=== PATIENT | female | born 1940 | race Caucasian/White ===

== ENCOUNTER 2016-08-28 04:29 | Inpatient (IN) | payer MEDICAID, MEDICARE ==
[2016-08-28] VITALS (7 sets, daily range): BP systolic 137–177; BP diastolic 77–93
[~2016-08-28] VITALS: Ht 154.9 cm; Wt 64.4 kg
--- NOTE | 2016-08-28 03:45 | NUR ---
MS RN NOTES: RECEIVED REPORT FROM MERCEDES REECE FROM [facility]. PT HAD UNWITNESSED FALL AT HOME. WAS ALSO INFORMED THAT PT IS DIALYSIS PT AND IS SCHEDULED TUES, THURS, AND SAT.
--- NOTE | 2016-08-28 04:40 | NUR ---
MS RN OPENING NOTES: RECEIVED PT FROM [address] FISH FOR ORDERS. AWAITING FOR PHONE CALL BACK. PT HAS IV ON R AC AND IS PATENT AND INTACT. PT ALSO HAS GERARD CATH IN PLACE AND IS ATTACHED TO DRAINAGE BAG. PT HAS RAO SHUNT USED FOR DIALYSIS. WILL CONTINUE TO MONITOR PT.
[2016-08-28] MEDS ORDERED: MORPHINE SULFATE INJ 4 MG/ML DISP.SYRIN ONE (05:27)
[2016-08-28] MEDS ORDERED: IV NS 0.9% 1,000 ML BAG IV PRN (05:30)
[2016-08-28] MEDS ORDERED: MORPHINE SULFATE INJ 2 MG/ML DISP.SYRIN IV PRN (05:30)
[2016-08-28] MEDS: MORPHINE SULFATE INJ 4 MG/ML DISP.SYRIN IV PRN (05:44)
--- NOTE | 2016-08-28 05:44 | NUR ---
MS RN NOTES: CHARGE NURSED PULLED OUT MORPHINE BUT INFORMED ME TO STOP ORDER AND CHANGE ORDER TO CHANGE ORDER TO MORPHINE 2MG SINCE IT MAY HAVE AN ISSUE SCANNING.
[2016-08-28] MEDS ORDERED: IV SET PRIMARY PUMP SET 1 EA INFUS.SET MC ONE (06:01)
[2016-08-28] MEDS ORDERED: IV NS 0.9% 1,000 ML ONE (06:02)
[2016-08-28] MEDS ORDERED: ONDANSETRON HCL/PF 4 MG/2 ML VIAL ONE (06:28)
[2016-08-28 06:30] LABS: BASOPHILS % (AUTO) 0.4 % (0.0-2.0); EOSINOPHILS # (AUTO) 0.1 /CMM (0.0-0.7); EOSINOPHILS % (AUTO) 2.1 % (0.0-6.0); HEMATOCRIT 39 % (33-45); HEMOGLOBIN 12.5 g/dL (11.5-14.8); LYMPHOCYTES # (AUTO) 1.1 /CMM (0.8-4.8); LYMPHOCYTES % (AUTO) 18.5 % (20.0-44.0); MEAN CORPUSCULAR HEMOGLOBIN 27 PG (26.0-33.0); MEAN CORPUSCULAR HGB CONC 33 g/dl (31.0-36.0); MEAN CORPUSCULAR VOLUME 84 fL (82-100); MONOCYTES # (AUTO) 0.5 /CMM (0.1-1.30); NEUTROPHILS # (AUTO) 4.3 /CMM (1.8-8.9); PLATELET COUNT (AUTO) 197 /CMM (150-450); RDW COEFFICIENT OF VARIATION 14.2 (11.5-15.0); WHITE BLOOD COUNT (AUTO) 6.1 K/uL (4.3-11.0)
[2016-08-28] MEDS: ONDANSETRON HCL/PF 4 MG/2 ML VIAL IV PRN ×2 (06:32→13:15)
[2016-08-28 06:47] LABS: ALANINE AMINOTRANSFERASE 17 U/L (12-78); ALBUMIN 3.8 g/dL (3.4-5.0); ALKALINE PHOSPHATASE 66 U/L (46-116); ASPARTATE AMINOTRANSFERASE 22 U/L (15-37); BILIRUBIN,TOTAL 1.1 mg/dL (0.2-1.0); CALCIUM, SERUM 9.8 mg/dL (8.5-10.1); CARBON DIOXIDE 36 mmol/L (21-32); CHLORIDE 94 mmol/L (98-107); CREATININE 7.1 mg/dL (0.6-1.3); GLUCOSE 134 mg/dL (74-106); MAGNESIUM 2.5 mg/dL (1.8-2.4); PHOSPHORUS 4.5 mg/dL (2.5-4.9); POTASSIUM 4.5 mmol/L (3.5-5.1); SODIUM SERUM 137 mmol/L (136-145); TOTAL PROTEIN, SERUM 8.2 g/dL (6.4-8.2); UREA NITROGEN, BLOOD 16 mg/dL (7-18)
[2016-08-28 07:07] LABS: PROTHROMBIN TIME 10.7 SECS (9.5-12.7)
--- NOTE | 2016-08-28 07:27 | NUR ---
RN OPENING NOTES PT. IS IN BED AWAKE. A&OX2-3. PT. IS NIGERIAN SPEAKING. PT. IS BREATHING UNLABORED ON ROOM AIR. NO S/S OF ACUTE DISTRESS. IV FLUIDS RUNNING AT 75 ML/ HR ON RIGHT ANTECUBITAL IV SITE. GERARD CATHETER HAS 150 ML OF CLEAR AND YELLOW URINE. BED IS IN LOW POSITION, 2 SIDE RAILS UP, AND CALL LIGHT IS WITHIN REACH. PT. HAS CONSENT FORM PREPARED FOR AN OPEN REDUCTION INTERNAL FIXATION OF RIGHT HIP FOR SURGERY, WILL FOLLOW UP. WILL CONTINUE TO ASSESS AND MONITOR.
--- NOTE | 2016-08-28 07:27 | NUR ---
MS RN CLOSING NOTES: ORDERED RECEIVED FROM DR. FISH AND WERE INPUTTED. NO SIGNS OR SYMPTOMS OF DISTRESS NOTED AT THIS TIME. PT RECEIVED ZOFRAN AND MORPHINE. PT HAS IV R AC AND IS BEING INFUSED WITH NS AT 75ML/HR. ALL NEEDS WERE ATTENDED AND ANTICIPATED FOR. BED KEPT IN LOCKED, LOWEST POSITION, AND SIDE RAILS X 2 UP. ENDORSED TO AM NURSE FOR JOHN.
--- NOTE | 2016-08-28 08:26 | NUR ---
RN NOTES PT. SIGNED SURGICAL PACKET CONSENT FORMS SIGNED. TYPE AND SCREEN WAS ORDERED.
[2016-08-28] MEDS ORDERED: IV NS 0.9% 1,000 ML IV PRN (09:00)
[2016-08-28 11:00] LABS: CHOLESTEROL 216 mg/dL (<200); HDL CHOLESTEROL 36 mg/dL (40-60); LDL 146 mg/dL (0-99); TRIGLYCERIDES 153 mg/dL (30-150)
[2016-08-28] MEDS ORDERED: FOLI1CAP PO (11:22)
[2016-08-28] MEDS ORDERED: ONDA4TAB5 PO (11:28)
[2016-08-28] MEDS ORDERED: NIFE30TA2 PO (11:32)
--- NOTE | 2016-08-28 11:46 | NUR ---
RN NOTES PT.'S FAMILY MEMBER JESS SAID THAT PT. RECEIVES HEMODIALYSIS TUESDAY, TUESDAY, AND TUESDAY. ALSO PT.'S HOME MEDICATIONS WERE VERIFIED. JESS LEFT TELEPHONE NUMBER .
--- NOTE | 2016-08-28 13:11 | NUR ---
RN NOTES PT. HAD X RAY PERFORMED FOR RIGHT HIP AND FEMUR, ASSISTED RADIOLOGIST WITH X-RAYS.
--- NOTE | 2016-08-28 13:12 | NUR ---
RN NOTES APPLIED DVT PUMPS TO BOTH LEGS.
[2016-08-28] MEDS: hydrALAZINE HCL 10 MG TABLET PO PRN (15:48)
--- NOTE | 2016-08-28 15:52 | NUR ---
RN NOTES PT.'S BLOOD PRESSURE WAS 169/86, PULSE 98. HYDROLAZINE HYDROCHLORIDE 10 MG WAS GIVEN. NO S/S OF ACUTE DISTRESS. PT. DENIES CHEST PAIN, AND NO SOB.
--- NOTE | 2016-08-28 16:48 | NUR ---
RN NOTES REASSESSED BP, 150/75, PULSE 95 BPM.
--- NOTE | 2016-08-28 17:03 | NUR ---
RN SABRINA SMART NP, WAS NOTIFIED OF PT.'S SBP 169/86, AND BLOOD PRESSURE MEDICATION WAS GIVEN. NO NEW ORDERS GIVEN.
--- NOTE | 2016-08-28 17:05 | NUR ---
RN NOTE PT.'S OXYGEN SATURATION IS READING 85% TO 90%. LIZA SMART AQUATICS ASSISTANT DEPARTMENT HEAD, WAS NOTIFIED AND NEW ORDERS WERE GIVEN TO START PT. ON OXYGEN AT 2L/MIN NASAL CANNULA.
--- NOTE | 2016-08-28 17:25 | NUR ---
RN NOTES REASSESSED OXYGEN SATURATION, IS NOW 99% WITH OXYGEN 2L/MIN.
--- NOTE | 2016-08-28 19:00 | NUR ---
MS RN INITIAL NOTE PT RECEIVED IN BED, NO S/S OF RESPIRATORY DISTRESS OR SOB. IV SITE INTACT WITH NO S/S OF INFILTRATION NOTED. SAFE ENVIRONMENT PROVIDED FREE OF CLUTTERS .BED IN LOCKED, LOW POSITION. CALL LIGHT WITHIN EASY REACH. WILL CONTINUE TO MONITOR.
--- NOTE | 2016-08-28 19:30 | NUR ---
RN CLOSING NOTES PT. IS IN BED A&OX3. LUXEMBOURGISH SPEAKING ONLY. PT. IS BREATHING ON OXYGEN 2 L/MIN WITH NASAL CANNULA. PT. HAS PATENT RIGHT IV ANTECUBITAL ACCESS. GERARD CATHETER WITH CLEAR AND YELLOW URINE 240 ML OUTPUT. BED IS IN LOW POSITION 2 SIDE RAILS UP, AND CALL LIGHT WITHIN REACH. DR. DIAZ RECEIVED X RAY IMAGES, AND CONSENT FORMS SIGNED. LEFT MESSAGE OVER THE PHONE FOR PT. FAMILY TO NOTIFY ABOUT SURGERY TOMORROW MORNING, PROVIDED [facility] [address] [place] CALL BACK NUMBER. WILL ENDORSE TO TIE SAWYER NURSE.
[2016-08-28] MEDS: NIFEdipine XL (30MG) 30 MG TAB PO SCH (21:28)
[2016-08-28] MEDS: VITAMIN B COMP W-C 1 TAB TABLET PO SCH (21:28)
--- NOTE | 2016-08-29 06:32 | NUR ---
MS RN CLOSING NOTES PATIENT COMFORTABLY IN BED ASLEEP AND EASILY AWAKEN, HEAD OF BED ELEVATED FOR BETTER LUNG EXPANSION AND GOOD CIRCULATION. ALERT AND VERBALLY X 3 NO S/S OF ACUTE DISTRESS. TOLERATING ROOM AIR NOW 02 SAT 95% R.A RESPONDS APPROPRIATELY TO VERBAL STIMULI, RESPIRATIONS EVEN UNLABORED BREATH SOUNDS. GOOD SKIN CARE PROVIDED. PATIENT IN STABLE CONDITION WITH NO SOB NO S/S OF DISTRESS SAFE HAZARD FREE ENVIRONMENT. NEEDS ATTENDED AND ANTICIPATED, NURSING CARE RENDERED, KEPT CLEAN AND DRY AND COMFORTABLE. ALL DUE MEDS WAS GIVEN. CALL LIGHT IN REACH, BED LOWERED AND LOCKED, SR X2 FOR SAFETY AND WILL ENDORSE CONTINUE PLAN OF CARE. MAINTAINS NPO AT MIDNIGHT FOR SURGERY FOR TODAY
[2016-08-29 06:36] LABS: BASOPHILS % (AUTO) 0.5 % (0.0-2.0); EOSINOPHILS # (AUTO) 0.1 /CMM (0.0-0.7); EOSINOPHILS % (AUTO) 1.7 % (0.0-6.0); HEMATOCRIT 41 % (33-45); HEMOGLOBIN 13.2 g/dL (11.5-14.8); LYMPHOCYTES # (AUTO) 0.8 /CMM (0.8-4.8); LYMPHOCYTES % (AUTO) 14.9 % (20.0-44.0); MEAN CORPUSCULAR HEMOGLOBIN 28 PG (26.0-33.0); MEAN CORPUSCULAR HGB CONC 33 g/dl (31.0-36.0); MEAN CORPUSCULAR VOLUME 84 fL (82-100); MONOCYTES # (AUTO) 0.5 /CMM (0.1-1.30); MONOCYTES % (AUTO) 8.8 % (2.0-12.0); NEUTROPHILS # (AUTO) 3.9 /CMM (1.8-8.9); NEUTROPHILS % (AUTO) 74.1 % (43.0-81.0); PLATELET COUNT (AUTO) 196 /CMM (150-450); WHITE BLOOD COUNT (AUTO) 5.3 K/uL (4.3-11.0)
[2016-08-29 06:50] LABS: CALCIUM, SERUM 9.7 mg/dL (8.5-10.1); CARBON DIOXIDE 35 mmol/L (21-32); CHLORIDE 93 mmol/L (98-107); GLUCOSE 119 mg/dL (74-106); MAGNESIUM 2.6 mg/dL (1.8-2.4); PHOSPHORUS 6.1 mg/dL (2.5-4.9); POTASSIUM 5.3 mmol/L (3.5-5.1); SODIUM SERUM 136 mmol/L (136-145); UREA NITROGEN, BLOOD 27 mg/dL (7-18)
[2016-08-29] MEDS ORDERED: BUPIVACAINE 0.5 % PF 150 MG/30 ML VIAL ONE (06:52)
[2016-08-29] MEDS ORDERED: BACITRACIN 50000 UNITS/VIAL ONE (06:52)
[2016-08-29 07:14] LABS: CREATININE 9.1 mg/dL (0.6-1.3)
--- NOTE | 2016-08-29 07:15 | NUR ---
MS RN NOTES RECEIVED PATIENT IN BED, AWAKE, A/O X3. PATIENT IS ON NPO, FOR SURGERY TODAY ORIF RIGHT HIP. NO C/O PAIN AT THIS TIME. BREATHING EVEN AND NON LABORED, NO SOB. CALL LIGHT WITHIN REACH. WILL CONT TO MONITOR.
--- NOTE | 2016-08-29 07:30 | NUR ---
FOR CARDIO CLEARANCE PRIOR SURGERY, NOTIFIED DR. GUTIÉRREZ, AWAITING MD TO CALL BACK.
[2016-08-29 08:00] VITALS: BP 149/76
--- NOTE | 2016-08-29 08:49 | NUR ---
PER STIVEN-OR NURSE, SURGERY CALLED TODAY. WILL FOLLOW UP FOR CARDIO CLEARANCE.
--- NOTE | 2016-08-29 09:16 | NUR ---
SPOKE TO DR. TOURE, PER MD HE WILL COME TO SEE THE PATIENT. CALLED OR, SPOKE TO [facility] NURSE, DR. DIAZ CONFIRMED CANCELLED SURGERY TODAY 08/29/16. PATIENT INFORMED, WITH SENIOR [employer] NET DEVELOPER AND WILL PLACE DIET BACK ON. INFORMED VAT PACKER-LIZA, CHARGE NURSE MADE AWARE.
--- NOTE | 2016-08-29 10:13 | NUR ---
PATIENT IS SEEN BY DR. TOURE, PER MD IF SURGERY IS TOMORROW, WOULD RECOMMEND HD IN AM PRIOR SURGERY. WILL ENDORSE TO NEXT SHIFT RN. CHARGE NURSE INFORMED.
--- NOTE | 2016-08-29 11:08 | NUR ---
ELEVATED POTASSIUM LEVEL 5.3 PER PATIENT HER LAST DIALYSIS TREATMENT WAS Tuesday08/27/[address] ROCA WITH NO NEW ORDERS AT THIS TIME.
[2016-08-29 16:00] VITALS: BP 150/78
[2016-08-29] MEDS: HYDROCODONE/APAP 5/325MG 1 EACH TABLET PO PRN (16:46)
--- NOTE | 2016-08-29 18:20 | NUR ---
MS RN CLOSING NOTES PATIENT IN BED, AWAKE. NOT IN DISTRESS. LIMITED MOVEMENT IN RLE DUE TO FRACTURE, MEDICATED WITH NORCO PO PRN AND MADE COMFORTABLE IN BED. CALL LIGHT WITHIN REACH. HD IN AM, AWAITING FOR SURGERY SCHEDULE BY DR. DIAZ. WILL ENDORSE TO LEGAL CASHIER RN FOR CONTINUITY OF CARE.
--- NOTE | 2016-08-29 19:30 | NUR ---
RN NOTE; RECEIVED PT IN AWAKE, A, OX3. BREATHING EVENLY. NO SOB. NAD. NO C/O PAIN OR DISCOMFORT. EXPLAINED POSSIBLE SX IN AM TO THE PT W/ UNDERSTANDING. TO F/U W/ SX SCHEDULE. NEEDS ATTENDED. ASSISTED W/ ADLS. CALL LIGHT WITHIN REACH. WILL CONT TO MONITOR .
[2016-08-29 20:11] VITALS: BP 148/77
[2016-08-29 20:56] VITALS: BP 148/77
[2016-08-29] MEDS: VITAMIN B COMP W-C 1 TAB TABLET PO SCH (21:11)
[2016-08-29] MEDS: NIFEdipine XL (30MG) 30 MG TAB PO SCH (21:11)
[2016-08-30] VITALS (9 sets, daily range): BP systolic 125–162; BP diastolic 65–94
--- NOTE | 2016-08-30 06:26 | NUR ---
RN NOTE; PT IN BED SLEEPING, AROUSES EASILY. BREATHING EVENLY. NO SOB. NAD. NO C/O PAIN OR DISCOMFORT. PT NPO AT THIS TIME FOR POSSIBLE SX TODAY. F/C IN PLACE. DRAINING VERY LITTLE AMOUNT OF CLEAR YELLOW URINE. NEEDS ATTENDED. CALL LIGHT WITHIN REACH. WILL CONT TO MONITOR AND WILL ENDORSE TO AM SHIFT FOR JOHN.
--- NOTE | 2016-08-30 08:00 | NUR ---
MS RN RECEIVED ON BED, AWAKE, ALERT, ORIENTED X3,ENGLISH SPEAKING LADY, DENIES PAIN AT THIS TIME. NOT IN ANY FORM OF DISTRESS, RESPIRATIONS EVEN AND UNLABORED,NO SOB NOTED.
--- NOTE | 2016-08-30 08:50 | NUR ---
MS REECE BREAKFAST SERVED,DUE MEDS GIVEN,TOLERATED WELL.
--- NOTE | 2016-08-30 09:00 | NUR ---
MS RN PATIENT KEPT ON NPO AT THIS TIME, DUE FOR SURGERY TODAY, PER [place] TUCKER.
--- NOTE | 2016-08-30 09:40 | NUR ---
MS RN WAS ABLE TO SPOKE W/ DAUGTHER, WILL HAVE SURGERY AFTER DIALYSIS.COLLAR RUNNER CAME TO DIALYZED PATIENT TODAY, BEFORE SURGERY.ALL NEEDS ATTENDED.
[2016-08-30 12:38] LABS: CARBON DIOXIDE 33 mmol/L (21-32); CHLORIDE 96 mmol/L (98-107); CREATININE 4.4 mg/dL (0.6-1.3); GLUCOSE 108 mg/dL (74-106); POTASSIUM 3.6 mmol/L (3.5-5.1); SODIUM SERUM 137 mmol/L (136-145); UREA NITROGEN, BLOOD 16 mg/dL (7-18)
--- NOTE | 2016-08-30 13:05 | NUR ---
MS SUPERVISOR METAL FABRICATING DONE W/ 2 LITERS OUTPUT,TOLERATED WELL.
[2016-08-30] MEDS ORDERED: FENTANYL PF 100MCG/2ML AMPUL ONE (13:06)
[2016-08-30] MEDS ORDERED: MIDAZOLAM HCL 2 MG/2ML VIAL ONE (13:06)
[2016-08-30] MEDS ORDERED: BUPIVACAINE 0.5 % PF 150 MG/30 ML VIAL ONE (13:15)
[2016-08-30] MEDS ORDERED: BACITRACIN 50000 UNITS/VIAL ONE (13:15)
--- NOTE | 2016-08-30 13:15 | NUR ---
MS RN ON BED, PATIENT WENT DOWN FOR SX, SEBAS WAS NOTIFIED W/ BMP RESULTS.
--- NOTE | 2016-08-30 16:10 | NUR ---
MS RN PATIENT CAME BACK FROM SURGERY, AWAKE,ALERT,ORIENTED X3, DENIES ANY PAIN AT THIS TIME, SX SITE COVERED W/ DRESSING, DRY,NO S.S OF BLEEDING, ICEPACK APPLIED TO SITED, WILL MONITOR PATIENT.
--- NOTE | 2016-08-30 17:05 | NUR ---
MS RN MADE ROUNDS, PATIENT DENIES ANY PAIN AT THIS TIME.
--- NOTE | 2016-08-30 19:00 | NUR ---
MS RN ON BED, NO DISTRESS NOTED, PATIENT DENIES PAIN AT THIS TIME. DRESSING INTACT TO SX SITE, NO S/S OF BLEEDING NOTED.
--- NOTE | 2016-08-30 19:34 | NUR ---
RN NOTE; RECEIVED PT IN BED AWAKE AND ALERT AND RESPONSIVE. BREATHING EVENLY. NO SOB. NAD. DENIED ANY PAIN OR DISCOMFORT.DRESSING ON R HIP CDI, F/C IN PLACE. BED LOW LOCKED. CALL LIGHT WITHIN REACH. WILL CONT TO MONITOR.
[2016-08-30] MEDS ORDERED: SECONDARY IV SET 1 EA INFUS.SET MC ONE (21:08)
[2016-08-30] MEDS: VITAMIN B COMP W-C 1 TAB TABLET PO SCH (21:20)
[2016-08-30] MEDS: ANCEF 1 GM/50 ML D5W IV SCH ×2 (21:20)
[2016-08-30] MEDS: NIFEdipine XL (30MG) 30 MG TAB PO SCH (21:20)
[2016-08-30] MEDS ORDERED: IV SET PRIMARY PUMP SET 1 EA INFUS.SET MC ONE (21:39)
--- NOTE | 2016-08-31 02:12 | NUR ---
NEW IV LINE 24G WAS STARTED ON R HAND W/ GOOD BLOOD RETURN. WILL CONT TO MONITOR.
[2016-08-31] MEDS: ANCEF 1 GM/50 ML D5W IV SCH ×4 (05:17→13:00)
--- NOTE | 2016-08-31 06:38 | NUR ---
RN NOTE; PT IN BED AWAKE AND ALERT. BREATHING EVENLY. NO SOB. NAD. NO ACUTE CHANGES OVER THE. NO COMPLICATION TO S/P HIP ORIF NOTED. NO C/O PAIN OR DISCOMFORT. DRESSING CDI. TO BE SEEN BY PT TODAY. NEEDS ATTENDED. ASSISTED W/ ADLS. CALL LIGHT WITHIN REACH. WILL CONT TO MONITOR AND WILL ENDORSE TO AM SHIFT FOR JOHN.
--- NOTE | 2016-08-31 07:30 | NUR ---
RECEIVED PT. IN AM ALERT AND ORIENTED X3,GUYANESE SPEAKING.
[2016-08-31 08:00] VITALS: BP 168/90
[2016-08-31 08:11] LABS: HEMATOCRIT 35 % (33-45); HEMOGLOBIN 11.6 g/dL (11.5-14.8); LYMPHOCYTES # (AUTO) 0.4 /CMM (0.8-4.8); LYMPHOCYTES % (AUTO) 7.3 % (20.0-44.0); MEAN CORPUSCULAR HEMOGLOBIN 28 PG (26.0-33.0); MEAN CORPUSCULAR HGB CONC 33 g/dl (31.0-36.0); MEAN CORPUSCULAR VOLUME 84 fL (82-100); MONOCYTES # (AUTO) 0.3 /CMM (0.1-1.30); MONOCYTES % (AUTO) 6.2 % (2.0-12.0); NEUTROPHILS # (AUTO) 4.5 /CMM (1.8-8.9); NEUTROPHILS % (AUTO) 86.5 % (43.0-81.0); PLATELET COUNT (AUTO) 215 /CMM (150-450); RDW COEFFICIENT OF VARIATION 14.1 (11.5-15.0); RED BLOOD CELL COUNT(AUTO) 4.17 MIL/uL (4.0-5.2); WHITE BLOOD COUNT (AUTO) 5.2 K/uL (4.3-11.0)
[2016-08-31] MEDS: hydrALAZINE HCL 10 MG TABLET PO PRN (08:17)
[2016-08-31 08:30] LABS: CALCIUM, SERUM 9.3 mg/dL (8.5-10.1); CARBON DIOXIDE 29 mmol/L (21-32); CHLORIDE 93 mmol/L (98-107); GLUCOSE 235 mg/dL (74-106); MAGNESIUM 2.5 mg/dL (1.8-2.4); PHOSPHORUS 5.5 mg/dL (2.5-4.9); POTASSIUM 5.4 mmol/L (3.5-5.1); SODIUM SERUM 133 mmol/L (136-145); UREA NITROGEN, BLOOD 36 mg/dL (7-18)
[2016-08-31] MEDS ORDERED: ENOXAPARIN SODIUM 40 MG/0.4 ML DISP.SYRIN SQ SCH (09:00)
--- NOTE | 2016-08-31 09:00 | NUR ---
BP ELEVATED-GIVEN APRESOLINE.
[2016-08-31 09:07] LABS: CREATININE 8.6 mg/dL (0.6-1.3)
[2016-08-31] MEDS: ENOXAPARIN SODIUM 30 MG/0.3 ML DISP.SYRIN SQ SCH (09:24)
--- NOTE | 2016-08-31 09:30 | NUR ---
RECEIVED ABN. CREATININE-ALERTED [facility],CALLED NEPHROLOGY.TO BE DIALYZED AGAIN TODAY.
[2016-08-31] MEDS: MORPHINE SULFATE INJ 4 MG/ML DISP.SYRIN IV PRN (10:20)
--- NOTE | 2016-08-31 11:36 | NUR ---
DR. CUNHA IN TO SEE PT. ORDERS GIVEN.
[2016-08-31 16:00] VITALS: BP 131/80
--- NOTE | 2016-08-31 16:00 | NUR ---
DIALYSIS COMPLETED.MED. X 1 FOR DISCOMFORT FOR PHYSICAL TX.
[2016-08-31] MEDS ORDERED: ENOX30DI SQ (16:37)
[2016-08-31] MEDS ORDERED: HYDR-3326 PO (16:37)
--- NOTE | 2016-08-31 19:30 | NUR ---
MS RN INITIAL NOTE RECEIVED PT AWAKE AND ALERT, PALESTINIAN SPEAKING ORIENTED X3, NO COMPLAINT OF PAIN OR RESPIRATORY DISTRESS NOTED DURING PHYSICAL ASSESSMENT, PT IS CLEAN/DRY AND COMFORTABLE, SAFETY MEASURES WILL BE MAINTAINED AT ALL TIMES, NEEDS WILL BE ANTICIPATED AND ATTENDED TO PROMPTLY.
[2016-08-31 20:00] VITALS: BP 138/88
[2016-08-31] MEDS: VITAMIN B COMP W-C 1 TAB TABLET PO SCH (21:33)
[2016-08-31] MEDS: HYDROCODONE/APAP 5/325MG 1 EACH TABLET PO PRN (21:33)
[2016-08-31] MEDS: NIFEdipine XL (30MG) 30 MG TAB PO SCH (21:33)
--- NOTE | 2016-09-01 06:28 | NUR ---
MS RN CLOSING NOTE PT REMAINED STABLE DURING SENIOR NETWORK SYSTEMS ENGINEER, NO SIGNIFICANT CHANGE IN CONDITION NOTE, WILL ENDORSE TO INCOMING NURSE FOR JOHN.
--- NOTE | 2016-09-01 07:15 | NUR ---
RN INITIAL NOTES: RECEIVED PT AWAKE AND ALERT X3, MALTESE SPEAKING, NOT IN ANY DISTRESS, DENIES ANY PAIN / DISCOMFORT. PROVIDED COMFORT & SAFETY MEASURES. BED KEPT LOW & IN LOCKED POS. CALL LIGHT PLACED W/IN REACH. NEEDS ATTENDED. WILL CONTINUE TO MONITOR.
[2016-09-01 08:00] VITALS: BP 158/84
[2016-09-01] MEDS: ENOXAPARIN SODIUM 30 MG/0.3 ML DISP.SYRIN SQ SCH (08:49)
[2016-09-01] MEDS: HYDROCODONE/APAP 5/325MG 1 EACH TABLET PO PRN ×2 (08:49→14:38)
[2016-09-01 10:00] VITALS: BP 158/84
--- NOTE | 2016-09-01 12:00 | NUR ---
auricular therapist received pt in bed aox4 on 2l nc sat 97% pt is not on lmsw lung sounds diminished incentive spirometer at bedside pt teaching done how to use, abd soft active bowl sounds, pt has r hip dressing s/p surgery pt complaining of pain 10/10 pain med given as ordered, iv access patent fall precautions taken call light w/ in reach will continue to monitor. pt refused turning will check again in 1hr advised pt not turning can cause pressure ulcer and or skin damage, pt still refused, will follow up.
[2016-09-01 16:00] VITALS: BP 151/86
--- NOTE | 2016-09-01 16:18 | NUR ---
olericulture teacher pt in room gave report to [employer] [facility] spoke to ella roca, pt will be discharged vs stable dressing changed r hip no swelling edema noted.
[2016-09-01] MEDS: MORPHINE SULFATE INJ 4 MG/ML DISP.SYRIN IV PRN (16:27)
--- NOTE | 2016-09-01 17:32 | NUR ---
agricultural research technician ambualnce at bedside taking pt to [facility], report given, pt refused me to check her sacrum she stated she is in pain i gave her pain med one hr ago she still refuses to have her sacrum and back checked for any skin breakdown or skin condition. vs stable no distress noted pt moved to out of hospital with ambulance exit care done paperwork given to ambulance, pt unable to sign belongings list or exitcare teaching.
== END 2016-09-01 18:00 | DRG 308 ==
LOC: TELE 04:29 → MED 06:49
PROVIDERS: ADMIT Nurse Practitioner Acute Care; ATTEND Nurse Practitioner Acute Care
PROC: 0QS606Z Reposition Right Upper Femur with Intramedullary Internal Fixation Device, Open Approach (ICD-10-PCS; principal; 2016-08-30 14:05)
PROC: 5A1D60Z (ICD-10-PCS; principal; 2016-08-30 14:05)
DX: S72.141A Displaced intertrochanteric fracture of right femur, initial encounter for closed fracture (principal); N18.6 End stage renal disease; I12.0 Hypertensive chronic kidney disease with stage 5 chronic kidney disease or end stage renal disease; E11.22 Type 2 diabetes mellitus with diabetic chronic kidney disease; E11.65 Type 2 diabetes mellitus with hyperglycemia; E78.5 Hyperlipidemia, unspecified; D64.9 Anemia, unspecified; E66.9 Obesity, unspecified; Z79.84 Long term (current) use of oral hypoglycemic drugs; Z99.2 Dependence on renal dialysis; Z83.3 Family history of diabetes mellitus; Z68.26 Body mass index [BMI] 26.0-26.9, adult; W07.XXXA Fall from chair, initial encounter; Y93.9 Activity, unspecified; Y92.009 Unspecified place in unspecified non-institutional (private) residence as the place of occurrence of the external cause
CPT/HCPCS: 36415; 71010-TC; 73501; 73502; 73552; 80048-TC; 80053-TC; 80061-TC; 83735-TC; 84100-TC; 85025-TC; 85610-TC; 86850-TC; 87081-TC; 90935-TC; 93307-TC; 94799-TC; 97001-TC; A6209; A6402; C1713; J0690; J1100; J1650; J2250; J2270; J2405; J2704; J3010; J3490; J7030; J7060; Z7610